=== PATIENT | female | born 1965 | race Caucasian/White ===

== ENCOUNTER → 2020-07-09 09:13 | Outpatient (CLI) | payer OTHER, SELFPAY ==
--- NOTE | ~2020-07-09 | MM_ITS ---
EXAMINATION: MM screening cristy BI w solo HISTORY: Screening TECHNIQUE: Craniocaudal and mediolateral oblique 3-D tomosynthesis images were obtained and synthetic 2-D images were generated. CAD analysis was submitted and interpreted. COMPARISON: Comparison to multiple prior studies sequentially, with oldest reviewed study dated 01/08. BREAST PARENCHYMAL COMPOSITION: There are scattered areas of fibroglandular density. FINDINGS: There is no evidence of suspicious mass, calcification, or architectural distortion to sugg est malignancy in either breast. There has been no suspicious interval change. IMPRESSION: 1. No mammographic evidence of malignancy. 2. Recommend routine screening mammography in one year. BI-RADS Category 1: Negative Reviewed, dictated and finalized at location A.
== END ==
PROVIDERS: Visit Provider Nurse Practitioner
DX: Z12.31 Encounter for screening mammogram for malignant neoplasm of breast (principal)
CPT/HCPCS: 77063; 77067

== ENCOUNTER → 2021-09-19 17:16 | Outpatient (CLI) | payer OTHER, SELFPAY ==
--- NOTE | ~2021-09-19 | DEXA_ITS ---
Bone Density Report Name: Nelli Durbin Age: 55 Sex: Female Ethnicity: White Date of : 1965 Indication: postmenopausal; screening for osteoporosis; height loss; hysterectomy; Referring Provider: KIM, JJ Study: Bone densitometry was performed. Exam Date: September 19, 2021 Accession number: [id number] Bone Density: Region BMD T-score Z-score Classification AP Spine (L1-L4) 0.992 -0.5 0.6 Normal Femoral Neck (Left) 0.790 -0.5 0.6 Normal Total Hip (Left) 0.938 0.0 0.7 Normal Femoral Neck (Right) 0.742 -1.0 0.1 Normal Total Hip (Right) 0.878 -0.5 0.2 Normal Total Hip Mean 0.908 -0.3 0.5 Normal World Health Organization criteria for BMD impression classify patients as: Normal (T-score at or above -1.0), Osteopenia (T-score between -1.0 and -2.5), or Osteoporosis (T-score at or below -2.5). 10-year Fracture Risk: FRAX not reported because: All T-scores for Spine Total, Hip Total, Femoral Neck at or above -1.0 Previous Exams: Region Exam Age BMD T-score BMD Change BMD Change Date g/cm2 vs Baseline vs Previous AP Spine(L1-L4) 09/19/2021 55 0.992 -0.5 -0.067 0.028 09/08/2017 51 0.964 -0.8 -0.095* -0.049* 06/30/2013 47 1.013 -0.3 -0.046* -0.003 07/12/2009 43 1.016 -0.3 -0.043* -0.043* 07/08/2008 42 1.059 0.1 Total Hip(Left) 09/19/2021 55 0.938 0.0 -0.083 0.018 09/08/2017 51 0.920 -0.2 -0.101* -0.054* 06/30/2013 47 0.973 0.3 -0.047* -0.007 07/12/2009 43 0.980 0.3 -0.040* -0.040* 07/08/2008 42 1.021 0.6 Total Hip(Right) 09/19/2021 55 0.878 -0.5 -0.089 0.003 09/08/2017 51 0.875 -0.6 -0.092* -0.072* 06/30/2013 47 0.947 0.0 -0.020 0.001 07/12/2009 43 0.946 0.0 -0.021 -0.021 07/08/2008 42 0.967 0.2 *Denotes significance at 95% confidence level, LSC for AP Spine = 0.022 g/cm2, LSC for Total Hip = 0.027 g/cm2 Clinical Information Provided by Patient: Has used the following medications: Vitamin D Has the following medical conditions: Hysterectomy Patient maximum height was 69.0 Menopause Age: 38 No regular weight bearing exercise Drinks caffeinated beverages Onset of menses at age 14 Number of children 0 Impression: The patient has normal bone ma
--- NOTE | ~2021-09-19 | MM_ITS ---
EXAMINATION: MM screening cristy BI w solo HISTORY: Screening mammogram TECHNIQUE: Craniocaudal and mediolateral oblique 3-D tomosynthesis images were obtained and synthetic 2-D images were generated. CAD analysis was submitted and interpreted. COMPARISON: 07/09/2020, 02/13/2019, 09/08/2017 bilateral digital screening mammogram examinations BREAST PARENCHYMAL COMPOSITION: There are scattered areas of fibroglandular density. FINDINGS: There is no evidence of suspicious mass, calcification, or architectural distortion to sugg est malignancy in either breast. There has been no suspicious interval change. IMPRESSION: 1. No mammographic evidence of malignancy. 2. Recommend routine screening mammography in one year. BI-RADS Category 1: Negative Reviewed, dictated and finalized at location A.
== END ==
PROVIDERS: Visit Provider Nurse Practitioner
DX: Z12.31 Encounter for screening mammogram for malignant neoplasm of breast (principal); Z78.0 Asymptomatic menopausal state
CPT/HCPCS: 77063; 77067; 77080

== ENCOUNTER 2022-12-15 09:24 | Emergency (ER) | payer OTHER, SELFPAY ==
[2022-12-15 09:43] VITALS: BP 109/77; PULSE 77; RESP 16; TEMP 36.9; O2SAT 99
--- NOTE | 2022-12-15 09:43 | ECG_ITS ---
Measurements Intervals [place] Rate: 77 P: 74 IA: 181 QRS: 35 QRSD: 77 T: 53 QT: 372 QTc: 422 Interpretive Statements SINUS RHYTHM VENTRICULAR TRIGEMINY POSSIBLE LEFT ATRIAL ENLARGEMENT RSR' IN V1 OR V2, PROBABLY NORMAL VARIANT BASELINE ARTIFACT- I, III ABNORMAL ECG NO PREVIOUS ECG AVAILABLE FOR COMPARISON Electronically Signed On 12-15-2022 10:10:57 MACHINE LEAD BURNER by Conor Naylor D.O.
--- NOTE | 2022-12-15 10:06 | ED.CHESTPAIN ---
HPI - Chest Pain General Chief Complaint: Chest Pain Stated Complaint: PALPITATIONS/CHEST HEAVINESS Time Seen by Provider: 12/15/22 09:56 Source: patient Mode of arrival: ambulatory Limitations: no limitations History of Present Illness HPI narrative: Patient presents today complaining of heart palpitations and chest tightness x5 days. Symptoms have been progressively getting worse since onset and are now constant. Denies shortness of breath, nausea vomiting, dizziness or lightheadedness. Denies any cardiac history. Related Data Home Medications Medication Instructions Recorded Confirmed venlafaxine 37.5 mg 37.5 mg PO DAILY 12/15/22 12/15/22 capsule,extended release 24 hr Allergies Allergy/AdvReac Type Severity Reaction Status Date / Time aspirin Allergy Unknown Unknown Unverified 12/15/22 09:41 codeine Allergy Unknown NAUSEA AND Unverified 12/15/22 09:41 VOMITING erythromycin base Allergy Unknown RESPIRATORY Unverified 12/15/22 09:41 DISTRESS Penicillins Allergy Unknown RESPIRATORY Unverified 12/15/22 09:41 DISTRESS ALL PENCILLINS Allergy Mild RESPIRATORY Uncoded 12/15/22 09:41 DISTRESS Review of Systems Review of Systems: CONSTITUTIONAL: Denies body aches, fever, chills, or sweats. EYES: Denies visual changes, redness, or discharge. ENT: Denies rhinorrhea, congestion, sore throat, or otalgia. CARDIOVASCULAR: Denies edema.+ palpitations, chest tightness RESPIRATORY: Denies cough or dyspnea. GASTROINTESTINAL: Denies abdominal pain, nausea, vomiting, or diarrhea. GENITOURINARY: Denies dysuria or hematuria. SKIN: Denies rash, itching, or wounds. MUSCULOSKELETAL: Denies back pain, joint pain, or myalgia. NEUROLOGIC: Denies headache, numbness, tingling, or weakness. PSYCH: Denies depression or anxiety. PMFSH Comments At time of signature, I have reviewed and agree with nursing past medical, surgical, social and family history unless otherwise noted. Please see nursing chart for further information. There is no relevant family history pertinent to the presenting complaint Exam Narrative: GENERAL: Well-appearing, well-nourished, and in no acute distress. HEAD: Normocephalic, atraumatic. EYES: EOMI. No redness or drainage. Conjunctivae normal. ENT: Mucous membranes pink and moist. NECK: Normal AROM. CHEST: No respiratory distress. Clear to auscultation. Chest is nontender HEART: Regular rate. Abnormal rhythm. No murmur appreciated. Normal peripheral pulses. ABDOMEN: Soft, nontender, nondistended, normal active bowel sounds. MUSCULOSKELETAL: No bony tenderness. EXTREMITIES: Normal range of motion. No edema. SKIN: Warm, dry, no rash. Capillary refill normal. Normal skin turgor. NEURO: No focal deficits. Alert and oriented x3. Gait steady. PSYCH: Normal affect. No signs of depression or anxiety. Course Course Level of Care: Express Care Visit Vital Signs Vital signs: Vital Signs Temperature 98.4 F 12/15/22 09:43 Pulse Rate 77 12/15/22 09:43 Respiratory Rate 16 12/15/22 09:43 Blood Pressure 109/77 12/15/22 09:43 Pulse Oximetry 99 12/15/22 09:43 Temperature 98.4 F 12/15/22 09:43 Pulse Rate 77 12/15/22 09:43 Respiratory Rate 16 12/15/22 09:43 Blood Pressure 109/77 12/15/22 09:43 Pulse Oximetry 99 12/15/22 09:43 Reviewed Transfer Transfered to: [facility] Transportation: Other (Private vehicle) Transfer rationale: Chest tightness, palpitations Accepting physician: Logan MDM - Chest Pain MDM Narrative Medical decision making narrative: EKG shows sinus rhythm with PVCs. Since patient is having chest tightness as well, I feel it indicated to transfer her to the ER for cardiac workup. ECG Data EKG #1: Attestation: I personally reviewed and interpreted this ECG as follows: ECG completion date: 12/15/22 ECG completion time: 09:40 Interpretation: Sinus rhythm with frequent PVCs. Heart rate 77. Peer inter
== END 2022-12-15 10:14 | disposition short-term general hospital (02) ==
PROVIDERS: Emergency Provider Nurse Practitioner
DX: R07.9 Chest pain, unspecified (principal); I49.3 Ventricular premature depolarization
CPT/HCPCS: 93005; 99203; G0463

== ENCOUNTER 2022-12-15 10:38 | Emergency (ER) | payer OTHER, SELFPAY ==
[2022-12-15] VITALS (8 sets, daily range): BP systolic 102–130; BP diastolic 63–82; PULSE 72–82; RESP 12–16; TEMP 36.6–37.1; O2SAT 97–100
--- NOTE | ~2022-12-15 | XR_ITS ---
EXAMINATION: XR chest 2V DATE: 12/15/2022 11:56 INDICATION: Heart palpitations TECHNIQUE: PA and lateral views of the chest were obtained. COMPARISON: Chest radiograph dated 03/19/2004 FINDINGS: Mild streaky opacities at the anterior lung bases most likely representing atelectasis along side a s mall bilateral paracardial fat pads. No other airspace opacities, pulmonary edema, pleural effusion o r pneumothorax. The cardiomediastinal silhouette is normal. Thoracic spondylosis. IMPRESSION: 1. Mild streaky anterior bibasilar opacities and favor atelectasis over pneumonia. Reviewed, dictated and finalized at location A. [facility] IMPRESSION: 1. Mild streaky anterior bibasilar opacities and favor atelectasis over pneumon ia.
--- NOTE | 2022-12-15 10:41 | ECG_ITS ---
Measurements Intervals [place] Rate: 75 P: 66 [place]: 169 QRS: 26 QRSD: 87 T: 48 QT: 370 QTc: 415 Interpretive Statements SINUS RHYTHM POSSIBLE LEFT ATRIAL ENLARGEMENT LOW QRS VOLTAGE IN PRECORDIAL LEADS DELAYED PRECORDIAL R/S TRANSITION BORDERLINE T WAVE ABNORMALITY- ANTERIOR LEADS BORDERLINE ECG COMPARED TO ECG 12/15/2022 09:40:53 NO SIGNIFICANT CHANGES Electronically Signed On 12-15-2022 12:04:10 TERMITE EXTERMINATOR by Conor Naylor D.O.
--- NOTE | 2022-12-15 11:26 | ED.ARRPALP ---
HPI - Arrhythmia/Palpitations General Chief Complaint: Arrhythmia/Palpitations Stated Complaint: HEART PALPATATIONS Time Seen by Provider: 12/15/22 11:10 History of Present Illness HPI narrative: 57-year-old female here for evaluation of palpitations over the past 4 days. Patient states that the palpitations have becoming more frequent in nature and are now associated with a band of tightness under her stomach. She presented to an urgent care facility today for her symptoms, had an EKG that showed frequent PVCs so she was referred to the ED. Patient denies any syncope, shortness of breath, fevers or chills. Does endorse caffeine use. No cardiac history. Related Data Home Medications Medication Instructions Recorded Confirmed venlafaxine 37.5 mg 37.5 mg PO DAILY 12/15/22 12/15/22 capsule,extended release 24 hr Allergies Allergy/AdvReac Type Severity Reaction Status Date / Time aspirin Allergy Unknown Unknown Verified 12/15/22 11:19 erythromycin base Allergy Unknown RESPIRATORY Verified 12/15/22 11:19 DISTRESS Penicillins Allergy Unknown RESPIRATORY Verified 12/15/22 11:19 DISTRESS codeine AdvReac Unknown NAUSEA AND Verified 12/15/22 11:19 VOMITING ALL PENCILLINS Allergy Mild RESPIRATORY Uncoded 12/15/22 11:19 DISTRESS Review of Systems Review of Systems: Gen.: Denies fevers or chills Eyes: Denies eye pain or visual change ENT: Denies congestion Respiratory: Denies shortness of breath or cough CV: Reports palpitations GI: Denies abdominal pain nausea, emesis or diarrhea denies burning, urgency, frequency or hematuria Musculoskeletal: Denies back pain or muscle pain Neuro: Denies numbness, tingling, weakness or focal weakness Skin: Denies rash Except as documented, all other systems reviewed and negative Exam Narrative: APPEARANCE: Well appearing, no pain in distress, well-nourished. Head: Normocephalic and atraumatic. EYES: PERRLA/EOMI, conjunctivae clear NOSE: No nasal drainage EARS: External ear normal in appearance THROAT: Oropharynx is clear. Mucous membranes are moist. NECK: Supple. No adenopathy, no masses. RESPIRATORY: Airway patent, respirations nonlabored. Clear to auscultation bilaterally, no rales, rhonchi, wheezing. CARDIOVASCULAR: Regular rate and rhythm without murmurs, rubs, or gallops. ABDOMINAL: Normoactive bowel sounds. Soft, nontender, nondistended. No rebound tenderness or guarding. MUSCULOSKELETAL: Extremities are warm and well-perfused. Moves all extremities well. No edema. NEURO: Normal speech. No focal neurologic deficits. SKIN: Skin is warm and dry. No rashes. PSYCHIATRIC: Normal affect/mood.. Course Vital Signs Vital signs: Vital Signs Temperature 97.8 F 12/15/22 11:03 Pulse Rate 75 12/15/22 11:03 Respiratory Rate 16 12/15/22 11:03 Blood Pressure 105/70 12/15/22 11:03 Pulse Oximetry 98 12/15/22 11:03 Oxygen Delivery Room Air 12/15/22 11:03 Temperature 98.8 F 12/15/22 12:10 Pulse Rate 82 12/15/22 15:34 Respiratory Rate 12 12/15/22 15:34 Blood Pressure 121/68 12/15/22 15:34 Pulse Oximetry 98 12/15/22 15:34 Oxygen Delivery Room Air 12/15/22 11:03 MDM - Arrhythmia/Palpitations MDM Narrative Medical decision making narrative: 57-year-old female here for evaluation of palpitations over the past several days associated with chest tightness sensation. She has had no syncope or other concerning history components associated with the palpitations. She is nontoxic-appearing and has normal vital signs. Her heart and lungs are clear to auscultation. Her EKG is in sinus rhythm; reviewed EKG from urgent care that shows frequent PVCs. Patient was maintained on telemetry throughout her ED stay and did not have any concerning events, she does appear to have PVCs with her sensation of palpitations. Trope is negative. D-dimer is negative. TSH is normal. Other labs are unremarkable, chest x-ray shows atelectasis but no a
[2022-12-15 11:51] LABS: Basophils Percent Auto 0.8 % (0.2-1.2); Eosinophils Absolute Auto 0.2 K/mm3 (0-0.3); Eosinophils Percent Auto 4.1 % (0-4.4); Hematocrit 37.4 % (37.0-47.0); Hemoglobin 12.1 g/dL (12.0-15.0); Immature Granulocyte Absolute 0.01 K/mm3 (0.00-0.031); Immature Granulocyte Percent A 0.2 % (0-0.5); Lymphocytes Absolute Auto 1.88 K/mm3 (0.9-3.2); Lymphocytes Percent Auto 36.6 % (18.3-44.2); Mean Corpuscular HGB Conc 32.4 g/dl (32-36); Mean Corpuscular Hemoglobin 30.8 pg (26-34); Mean Corpuscular Volume 95.2 fl (80-100); Mean Platelet Volume 9.5 fl (7.4-10.4); Monocytes Absolute Auto 0.4 K/mm3 (0.1-0.6); Monocytes Percent Auto 7.8 % (2.6-8.5); Neutrophils Absolute Auto 2.6 K/mm3 (1.3-6.7); Neutrophils Percent Auto 50.5 % (45.5-73.1); Platelet Count Result 199 k/mm3 (150-375); Red Blood Count 3.93 M/mm3 (4.2-5.4); Red Cell Distribution Width 12.8 % (11.5-14.5); White Blood Count 5.1 K/mm3 (4.5-10.0)
[2022-12-15 13:31] LABS: Alanine Aminotransferase 20 U/L (6-35); Albumin Level 3.9 g/dL (3.5-5.1); Alkaline Phosphatase 100 U/L (38-126); Anion Gap 8 mmol/L (8-16); Aspartate Amino Transferase 19 U/L (14-36); Bilirubin,Total 0.5 mg/dL (0.2-1.3); Blood Urea Nitrogen 16 mg/dL (7-17); Calcium 8.9 mg/dL (8.4-10.2); Carbon Dioxide 23 mmol/L (22-30); Chloride 108 mmol/L (98-107); Estimated CRCL calculation 80 ml/min; Estimated Glomerular Filt Rate > 60; Glucose 96 mg/dL (65-110); Lipase 66 U/L (23-300); Magnesium 1.9 mg/dL (1.6-2.3); Potassium 4.1 mmol/L (3.4-5.0); Sodium 139 mmol/L (137-145)
[2022-12-15 13:43] LABS: Troponin I < 0.012 ng/mL (0.000-0.034)
[2022-12-15 14:34] LABS: D Dimer 0.31 ug/mL (<0.48)
--- NOTE | 2022-12-25 08:30 | PC.NURSE ---
pt. called unable to schedule holter monitor and told no order for her. Order hx shows Rae Aranda entered order than Charlene Tee cancelled it. I called cardioCharlene answered. States she canceled the order because the pt. was going to [place] ; I explained the pt. was moving to [place] and still needed the order. I was directed to put in a new order. Placed same order as entered by Rae Aranda on 12.15.22 except made order routine vs. stat . Called cardio to confirm, no answer, left message and requested return call to confirm everything was in order for this pt.
== END 2022-12-15 15:36 | disposition home or self-care (01) ==
PROVIDERS: Emergency Provider Physician Assistant
DX: I49.3 Ventricular premature depolarization (principal)
CPT/HCPCS: 36415; 71046; 80053; 83690; 83735; 84443; 84484; 85025; 85380; 93005; 99284

== ENCOUNTER → 2023-02-20 07:26 | Outpatient (CLI) | payer OTHER, SELFPAY ==
--- NOTE | ~2023-02-20 | MM_ITS ---
EXAMINATION: MM screening cristy BI w solo HISTORY: Screening TECHNIQUE: Craniocaudal and mediolateral oblique 3-D tomosynthesis images were obtained and synthetic 2-D images were generated. CAD analysis was submitted and interpreted. COMPARISON: Comparison to multiple prior studies sequentially, with oldest reviewed study dated 02/2014. BREAST PARENCHYMAL COMPOSITION: There are scattered areas of fibroglandular density. FINDINGS: There is possible architectural distortion laterally in the right breast on CC view. The le ft breast is stable without evidence for malignancy. IMPRESSION: 1. Possible architectural distortion of the right breast laterally on CC view. 2. Additional mammographic views and possible breast ultrasound are recommended. BI-RADS Category 0: Incomplete: Needs additional imaging evaluation. Reviewed, dictated and finalized at location A. IMPRESSION: 1. Possible architectural distortion of the right breast laterally on CC view. 2. Additional mammographic views and possible breast ultrasound are recommended . BI-RADS Category 0: Incomplete: Needs additional imaging evaluation.
== END ==
PROVIDERS: PCP Nurse Practitioner; Visit Provider Nurse Practitioner
DX: Z12.31 Encounter for screening mammogram for malignant neoplasm of breast (principal); R92.8 Other abnormal and inconclusive findings on diagnostic imaging of breast
CPT/HCPCS: 77063; 77067

== ENCOUNTER → 2023-03-20 07:25 | Outpatient (CLI) | payer OTHER, SELFPAY ==
--- NOTE | ~2023-03-20 | MMUS_ITS ---
EXAMINATION: MM diagnostic cristy RT w solo, US breast RT limited HISTORY: Possible architectural distortion reported in outer right breast on screening CC view of 01/25 TECHNIQUE: Additional 3-D tomosynthesis images of the right breast were performed and synthetic 2-D i mages were generated. CAD analysis was submitted and interpreted. High resolution upper outer quadran t right breast ultrasound was performed. COMPARISON: 02/20/2023 bilateral screening mammogram FINDINGS: MAMMOGRAPHIC FINDINGS: No suspicious mass or architectural distortion, skin thickening or retraction is evident. ULTRASOUND: No suspicious mass or shadowing, cyst or other sylvian sonographic abnormality is noted in the upper outer quadrant of the right breast. IMPRESSION: 1. No mammographic evidence of malignancy 2. Routine annual mammographic screening is recommended BI-RADS Category 1: Negative Reviewed, dictated and finalized at location A. IMPRESSION: 1. No mammographic evidence of malignancy 2. Routine annual mammographic screening is recommended BI-RADS Category 1: Negative
== END ==
PROVIDERS: PCP Nurse Practitioner; Visit Provider Obstetrics & Gynecology Gynecology
DX: R92.8 Other abnormal and inconclusive findings on diagnostic imaging of breast (principal)
CPT/HCPCS: 76642; 77061; 77065; G0279

== ENCOUNTER → 2023-03-20 07:28 | Outpatient (CLI) | payer OTHER, SELFPAY ==
--- NOTE | ~2023-03-20 | XR_ITS ---
EXAMINATION: XR shoulder LT min 2V DATE: 03/20/2023 08:22 INDICATION: Left shoulder pain. TECHNIQUE: 4 views of left shoulder were obtained. COMPARISON: None. FINDINGS: Bone alignment is normal. No fracture. Glenohumeral joint is normal. There is severe acromi oclavicular joint osteoarthritis. IMPRESSION: 1. Severe acromioclavicular joint osteoarthritis. Reviewed, dictated and finalized at location A.
--- NOTE | ~2023-03-20 | XR_ITS ---
EXAMINATION: XR knee LT 3V DATE: 03/20/2023 08:22 INDICATION: Left knee pain. TECHNIQUE: 3 views of left knee including standing views were obtained. COMPARISON: None. FINDINGS: Bone alignment is normal. No fracture. There is moderate osteoarthritis of medial compartme nt and mild osteoarthritis of lateral and patellofemoral compartments. No knee joint effusion. IMPRESSION: 1. Moderate left knee osteoarthritis. Reviewed, dictated and finalized at location A.
== END ==
PROVIDERS: PCP Nurse Practitioner; Visit Provider Nurse Practitioner
DX: M25.512 Pain in left shoulder (principal); M25.562 Pain in left knee; M19.012 Primary osteoarthritis, left shoulder; M17.12 Unilateral primary osteoarthritis, left knee
CPT/HCPCS: 73030; 73562

== ENCOUNTER 2023-06-06 00:25 | Day surgery (SDC) | payer OTHER, SELFPAY ==
[2023-05-24 13:51] VITALS: BMI 27.0
[2023-06-06] MEDS: LACTATED RINGERS 1,000 ML 150 ML IV CONT (07:02)
--- NOTE | 2023-06-06 07:47 | WPDANESEPPF ---
Anes - Initial Pre Proc Eval Procedure: Operation Date: 06/06/23 08:00 Proposed Procedures p Screening Colonoscopy - J Luis Goldberg MD Date/Time: 06/06/23 07:47 Surgeon: J Luis Goldberg MD Pre Op Diagnosis: neoplasm screening Patient Data Age: 57 Gender: F Height: 1.75 m Weight: 82 kg Allergies Allergy/AdvReac Type Severity Reaction Status Date / Time aspirin Allergy Unknown Unknown Verified 06/06/23 06:47 crab Allergy Unknown unknown Verified 06/06/23 06:47 erythromycin base Allergy Unknown RESPIRATORY Verified 06/06/23 06:47 DISTRESS Penicillins Allergy Unknown RESPIRATORY Verified 06/06/23 06:47 DISTRESS shrimp Allergy Unknown Unknown Verified 06/06/23 06:47 codeine AdvReac Unknown NAUSEA AND Verified 06/06/23 06:47 VOMITING ALL PENCILLINS Allergy Mild RESPIRATORY Uncoded 06/06/23 06:47 DISTRESS Home Medications Medication Instructions Recorded Confirmed Type acetaminophen 650 mg 1,300 mg PO Q8H 05/03/23 05/30/23 History tablet,extended release (Arthritis Pain Relief (acetaminophen) ER) flecainide 50 mg tablet 50 mg PO BID 05/24/23 05/30/23 History Patient hx anesthesia problems: none Family hx anesthesia problems: none Results Review: All pre-operative results and documents have been reviewed as part of the pre-operative evaluation. [facility] Past Medical History Medical History History of bruising easily History of postoperative nausea and vomiting Premature ventricular contractions (PVCs) (VPCs) (~12/19/22) Sensitivity to medication Narcotics Surgical History Surgical History History of abdominal hysterectomy (~1997) History of dental surgery History of laparoscopy (~1989) Endometriosis History of right knee surgery (~2004) Family History Family History Mother Hypertension Arthritis Father Arthritis Sibling Arthritis Grandparent Arthritis Social History Social History Smoking status: Never smoker Alcohol intake: never Substance use: current Substance use type: other Other substance usage details: CBD OIL AND GUMMIES Lack of Transportation: No Lack of Food: Never True Current Housing: I Have Housing Concerned About Future Housing: No Difficulty Paying Gas/Electric Bills: No Difficulty Paying for Meds: No Currently Unemployed: No Education: Bachelor's Degree Difficulty w/ Childcare or Family Care: No Living arrangements: with family Spiritual care concerns: No Anes - Eval Final PreProcedure Day of Procedure 06/06/23 07:47 Patient weight: normal Heart: regular rate and rhythm Lungs: clear to auscultation Airway: Mallampati scale class II Neurological: alert and oriented Last oral intake: >/= 8 hours ASA classification: II Emergent: no Anesthetic plan: proceed Anesthesia type and monitoring: general GIVS and standard monitoring Results Review: All pre-operative results and documents have been reviewed as part of the pre-operative evaluation. Informed Consent: The patient's anesthetic plan and its attendant risks and benefits were discussed with the patient/family/POA. Questions were solicited and answers provided to the satisfaction of the patient/family/POA.
--- NOTE | 2023-06-06 07:54 | PM.HPGS ---
History of Present Illness History of Present Illness Consent: Risks, benefits, and alternatives have been discussed and questions answered. Patient agrees to proceed with procedure. Chief complaint: neoplasm screening Narrative: Nelli Durbin is a 57 year old female here for first screening colonoscopy Review of Systems Constitutional: Constitutional: Denies headache(s) and Denies weakness Eyes: Eyes: Denies blurry vision ENT: Reports Normal hearing present, Denies headache(s) and Denies neck pain Cardiovascular: Cardiovascular: Denies chest pain and Denies dyspnea Respiratory: Respiratory: Denies dyspnea Gastrointestinal: Gastrointestinal: Reports no additional gastrointestinal complaints Genitourinary: Genitourinary: Denies dysuria Musculoskeletal: Musculoskeletal: Denies neck pain Integumentary/Breasts: Skin/Breast: Denies dry skin Neurologic: Reports Normal hearing present, Denies headache(s) and Denies weakness Psychiatric: Psychiatric: Denies anxiety Endocrine: Endocrine: Denies change in body appearance Hematologic/Lymphatic: Hematologic/Lymphatic: Denies easy bleeding Allergic/Immunologic: Allergic/Immunologic: Denies urticaria PMF Past Medical History Medical History (Updated 06/06/23 @ 07:55 by J Luis Goldberg MD) Colon cancer screening History of bruising easily History of postoperative nausea and vomiting Premature ventricular contractions (PVCs) (VPCs) (~12/19/22) Sensitivity to medication Narcotics Surgical History Surgical History History of abdominal hysterectomy (~1997) History of dental surgery History of laparoscopy (~1989) Endometriosis History of right knee surgery (~2004) Family History Family History Mother Hypertension Arthritis Father Arthritis Sibling Arthritis Grandparent Arthritis Social History Social History Smoking status: Never smoker Alcohol intake: never Substance use: current Substance use type: other Other substance usage details: CBD OIL AND GUMMIES Lack of Transportation: No Lack of Food: Never True Current Housing: I Have Housing Concerned About Future Housing: No Difficulty Paying Gas/Electric Bills: No Difficulty Paying for Meds: No Currently Unemployed: No Education: Bachelor's Degree Difficulty w/ Childcare or Family Care: No Living arrangements: with family Spiritual care concerns: No Meds Home Medications and Allergies Home Medications Medication Instructions Recorded Confirmed Type acetaminophen 650 mg 1,300 mg PO Q8H 05/03/23 05/30/23 History tablet,extended release (Arthritis Pain Relief (acetaminophen) ER) flecainide 50 mg tablet 50 mg PO BID 05/24/23 05/30/23 History Allergies Allergy/AdvReac Type Severity Reaction Status Date / Time aspirin Allergy Unknown Unknown Verified 06/06/23 06:47 crab Allergy Unknown unknown Verified 06/06/23 06:47 erythromycin base Allergy Unknown RESPIRATORY Verified 06/06/23 06:47 DISTRESS Penicillins Allergy Unknown RESPIRATORY Verified 06/06/23 06:47 DISTRESS shrimp Allergy Unknown Unknown Verified 06/06/23 06:47 codeine AdvReac Unknown NAUSEA AND Verified 06/06/23 06:47 VOMITING ALL PENCILLINS Allergy Mild RESPIRATORY Uncoded 06/06/23 06:47 DISTRESS Exam Const: General: comfortable and no acute distress HENMT: Face/Nose/Sinus: Normal nares present Eyes: General: appearance normal, both eyes and all related structures Neck: Neck: no JVD Resp: Auscultation: clear to auscultation bilaterally Cardio: Rate: regular rate Rhythm: regular rhythm GI: Inspection: non-distended GI Palp: Yes Soft to palpation Skin: General skin exam: normal color Neuro: General: gait normal Speech: normal speech Extrem: General: normal to i
[2023-06-06 08:14] VITALS: BP 101/59; PULSE 81; RESP 21; O2SAT 96
[2023-06-06 08:24] VITALS: BP 104/64; PULSE 64; RESP 13; O2SAT 99
[2023-06-06 08:34] VITALS: BP 126/65; PULSE 74; RESP 24; O2SAT 99
== END 2023-06-06 08:47 | disposition home or self-care (01) ==
PROVIDERS: PCP Nurse Practitioner; Visit Provider Internal Medicine Gastroenterology
PROC: 0DJD8ZZ Inspection of Lower Intestinal Tract, Via Natural or Artificial Opening Endoscopic (ICD-10-PCS; CPT 45378; principal; 2023-06-06 08:00)
DX: Z12.11 Encounter for screening for malignant neoplasm of colon (principal); K64.8 Other hemorrhoids; I49.3 Ventricular premature depolarization
CPT/HCPCS: 45378; J2704; J7120

== ENCOUNTER → 2023-07-04 09:46 | Outpatient (CLI) | payer OTHER, SELFPAY ==
--- NOTE | ~2023-07-04 | MMUS_ITS ---
EXAMINATION: MM diagnostic cristy RT w solo, US breast RT limited HISTORY: Palpable lumps in the upper outer quadrant and lower right breast. TECHNIQUE: Craniocaudal, mediolateral, and mediolateral oblique 3-D tomosynthesis images of the right breast were performed and synthetic 2-D images were generated. CAD analysis was submitted and interp reted. High resolution limited right breast ultrasound was performed. COMPARISON: 03/20/2023, 02/12/2023, 09/19/2021, 07/09/2020 BREAST PARENCHYMAL COMPOSITION: There are scattered areas of fibroglandular density. FINDINGS: MAMMOGRAPHIC FINDINGS: No suspicious mass, calcification, or architectural distortion are identified to suggest malignancy. There has been no suspicious interval change. No mammographic correlate is identified for the reporte d palpable abnormalities of the right breast. ULTRASOUND: There is no evidence of focal abnormal solid or cystic mass in the vicinity of the reported palpable abnormalities of the right breast. IMPRESSION: 1. No specific mammographic or sonographic correlate is identified for the reported palpable abnormal ities of concern in the right breast. Further evaluation at this time should be based on clinical ass essment. Continued follow-up physical examination is recommended. 2. Recommend routine screening mammography in one year. BI-RADS Category 1: Negative Reviewed, dictated and finalized at location A. IMPRESSION: 1. No specific mammographic or sonographic correlate is identified for the repo rted palpable abnormalities of concern in the right breast. Further evaluation at this time should be based on clinical assessment. Continued follow-up physic al examination is recommended. 2. Recommend routine screening mammography in one year. BI-RADS Category 1: Negative
== END ==
PROVIDERS: PCP Advanced Practice Midwife; Visit Provider Advanced Practice Midwife
DX: N63.10 Unspecified lump in the right breast, unspecified quadrant (principal); N64.59 Other signs and symptoms in breast
CPT/HCPCS: 76642; 77061; 77065; G0279

== ENCOUNTER 2023-08-21 09:00 | Outpatient (CLI) | payer OTHER, SELFPAY ==
--- NOTE | ~2023-08-21 | US_ITS ---
EXAMINATION: US_VDOPREFBI_US DATE: 08/21/2023 10:11 INDICATION: Chronic venous insufficiency. TECHNIQUE: Grayscale ultrasound images without and with compression and Doppler ultrasound images of the bilateral lower extremity veins were obtained. COMPARISON: None. FINDINGS: The visualized portions of right common femoral vein, profunda (deep) femoral vein, femoral vein, pop liteal vein, peroneal veins, and posterior tibial veins are patent. Saphenous vein measures 9 mm in the upper thigh, 6 mm in the lower thigh, and 7 mm in the calf. There is reflux of right greater saphenous vein measuring 5.0 seconds upper thigh, 1.8 seconds in the lowe r thigh, and 5.0 seconds in the calf. Right small saphenous vein measures 3 mm in the upper calf and 3 mm in the lower calf without reflux. The visualized portions of left common femoral vein, profunda femoral vein, femoral vein, popliteal v ein, peroneal veins, and posterior tibial veins are patent. Left greater saphenous vein measures 7 mm in the upper thigh, 5 mm in the lower thigh, and 4 mm in the calf. There is reflux in left greater s aphenous vein measuring 0.9 seconds in the upper thigh, 2.0 seconds in the lower thigh, and 1.5 secon ds in the calf. Left small saphenous vein measures 3 mm in the upper calf and 4 mm in the lower calf without reflux. IMPRESSION: 1. Reflux in the bilateral greater saphenous veins. Reviewed, dictated and finalized at location E.
== END 2023-08-21 09:01 | disposition home or self-care (01) ==
PROVIDERS: PCP Nurse Practitioner
DX: I87.2 Venous insufficiency (chronic) (peripheral) (principal)
CPT/HCPCS: 93970

== ENCOUNTER 2023-10-22 10:45 | Outpatient (CLI) | payer OTHER, SELFPAY ==
--- NOTE | 2023-10-26 15:46 | WPDHOLTEREM ---
Holter/Event Monitor Holter/Event Monitor Date of procedure: 10/22/23 Holter/Event Procedure: 48 Hr Holter Monitor Indications: PVC's Conclusion: 1. 48 hour holter monitor on 10/22/23. 2. Underlying rhythm is sinus rhythm. HR range 59-132 bpm; average 81 bpm. HR at 132 bpm was at 08:55. 3. There are 4 premature supraventricular complexes and 2 supraventricular couplets. No supraventricular tachycardia. 4. There are 6,827 premature ventricular complexes, 3 ventricular couplets, 53 ventricular bigeminy and 17,961 ventricular trigeminy. No ventricular tachycardia. 5. No sinoatrial or atrioventricular blocks. No significant pauses greater than 2 seconds. 6. Patient reports symptom of fast HR and slight pounding which demonstrate sinus rhythm at 85 bpm.
== END 2023-10-22 10:46 | disposition home or self-care (01) ==
LOC: ANHCARD 10:46
PROVIDERS: PCP Nurse Practitioner; Visit Provider Internal Medicine Cardiovascular Disease
DX: I49.3 Ventricular premature depolarization (principal)
CPT/HCPCS: 93225; 93226

== ENCOUNTER 2024-04-04 07:17 | Outpatient (CLI) | payer OTHER, SELFPAY ==
--- NOTE | ~2024-04-04 | MM_ITS ---
EXAMINATION: MM screening cristy BI w solo HISTORY: Screening mammogram TECHNIQUE: Craniocaudal and mediolateral oblique 3-D tomosynthesis images were obtained and synthetic 2-D images were generated. CAD analysis was submitted and interpreted. COMPARISON: 07/04/2023 right diagnostic mammogram and Limited right breast ultrasound, reported negativ e 03/20/2023 diagnostic right mammogram and Limited right breast ultrasound, reported negative 02/20/2023, 09/19/2021 bilateral screening mammogram examinations BREAST PARENCHYMAL COMPOSITION: There are scattered areas of fibroglandular density. FINDINGS: There is no evidence of suspicious mass, calcification, or architectural distortion to sugg est malignancy in either breast. There has been no suspicious interval change. IMPRESSION: 1. No mammographic evidence of malignancy. 2. Recommend routine screening mammography in one year. BI-RADS Category 1: Negative Reviewed, dictated and finalized at location B.
== END 2024-04-04 07:18 ==
PROVIDERS: PCP Nurse Practitioner; Visit Provider Obstetrics & Gynecology Gynecology
DX: Z12.31 Encounter for screening mammogram for malignant neoplasm of breast (principal)
CPT/HCPCS: 77063; 77067

== ENCOUNTER 2024-09-24 08:38 | Outpatient (CLI) | payer BC, SELFPAY ==
--- NOTE | ~2024-09-24 | XR_ITS ---
XR knee LT min 4V Ordering provider: Abner Hightower MD History: . M23.92 - Unspecified internal derangement of left knee . Comparison: March 20, 2023 FINDINGS: BONES: No acute fracture or dislocation. JOINT SPACES: Narrowing of the medial compartment. Marginal osteophytes in the knee and patella. SOFT TISSUES: Normal. IMPRESSION: No acute osseous abnormality left knee. Reviewed, dictated and finalized at location A.
== END 2024-09-24 08:39 | disposition home or self-care (01) ==
PROVIDERS: PCP Orthopaedic Surgery; Visit Provider Orthopaedic Surgery
DX: M23.92 Unspecified internal derangement of left knee (principal)
CPT/HCPCS: 73564

== ENCOUNTER 2025-04-03 08:49 | Outpatient (CLI) | payer BC, SELFPAY ==
--- OUTSIDE RECORDS SUMMARY | 2025-04-03 08:52 | XMS_ITS | Referral Summary ---
Author Organization [facility] [address] Address [address] [place] [address] Care Team Providers Care Medical Radiation Therapist Name Role Phone Allison Zurita NP Primary Care Provider [phone] Allison Zurita TAKE OUT WAITRESS Unavailable [phone] Allergies Active Allergy Reactions Criticality Noted Date Comments Aspirin Other (See comments) Low 07/17/2019 UNSURE WAS A TODDLER Erythromycin Urticaria Medium 07/17/2019 BREATHING PROBLEMS Penicillins Urticaria Medium 07/17/2019 BREATHING PROBLEMS Medications estradioL (Imvexxy Maintenance Pack) 10 mcg insert vaginal insert Insert 10 mcg into the vagina 2 (two) times a week Active flecainide (TAMBOCOR) 50 mg tablet TAKE 1 TABLET(50 MG) BY MOUTH TWICE DAILY 180 tablet 1 08/07/2023 Active Active Problems Problem Noted Date Diagnosed Date Palpitations 12/29/2022 PVC (premature ventricular contraction) 12/29/19 23 Social History Tobacco Use Types Packs/Day Years Used Date Smoking Tobacco: Never Smokeless Tobacco: Never Tobacco Cessation:Counseling Given: Not Answered Comments Unknown Sex and Gender Information Value Date Recorded Sex Assigned at Not on file Legal Sex Female 7:30 PM THERAPIST RESPIRATORY Gender Identity Not on file Sexual Orientation Not on file Last Filed Vital Signs Vital Sign Reading Time Taken Comments Blood Pressure 100/58 05/09/2023 10:54 AM CDT Pulse 76 05/09/2023 10:54 AM CDT Temperature - - Respiratory Rate 18 04/10/2023 8:27 AM CDT Oxygen Saturation 95% 05/09/2023 10:54 AM CDT Inhaled Oxygen Concentration - - Weight 83.5 kg (184 lb) 04/10/2023 8:27 AM CDT Height 175.3 cm (5' 9 ) 04/10/2023 8:27 AM CDT Body Mass Index 27.17 04/10/2023 8:27 AM CDT Plan of Treatment Not on file Insurance [facility] Address: [address] [address] [facility] Address: [address] [address] [facility] Address: [address] [address] Care Teams Medical Radiation Therapist Relationship Specialty Start Date End Date Allison Zurita NP [address] [place] [id number] PCP - General Nurse Practitioner 12/26/22 Allison Zurita NP [address] [place] [id number] Nurse Practitioner 12/26/22
--- OUTSIDE RECORDS SUMMARY | 2025-04-03 08:52 | XMS_ITS | Clinical Summary ---
Author Organization [facility] [employer] Address [address] [place] [address] Care Team Providers Care Shot Bagger Name Role Phone Unknown, Provider Primary Care Provider Unavaila ble Source Comments [facility],non-owned Affiliates and Associated Physician Practices is amultiple site organization consisting of ambulatory clinics and hospital sitesin [place], [place] and [place]. This disclosure is being madepursuant to the Care Everywhere program and may not contain all information available regarding this patient. Last updated 18.[facility] [employer] Allergies Active Allergy Reactions Criticality Noted Date Comments Aspirin Other 07/17/2019 UNSURE WAS A TODDLER Erythromycin Urticaria,Unknown Medium 07/17/2019 BREATHING PROBLEMS Penicillins Urticaria Medium 07/17/2019 BREATHING PROBLEMS Shellfish Allergy Urticaria,GI Discomfort High 08/01 Shellfish Unknown 12/05/2023 Medications * Be aware that medications may not be up to date on this document. Alwaysverify current medications with the patient. Estradiol (Imvexxy Maintenance Pack) 10 MCG INST Insert 10 mcg into the vagina Two times a week Active Immunizations Immunization Administration Dates Next Due INFLUENZA VACCINE, QUADR. (F LUZONE; FLULAVAL; FLUARIX; AFLURIA QUADRIVALENT; 6MO+), 0.5 ML (IIV4) 09/24/2020 Family History Medical History Relation Name Comments High Cholesterol Father Phlebitis/Blood Clot Father Hypertension Mother Phlebitis/Blood Clot Mother Relation Name Status Comments Father Mother Social History Tobacco Use Types Packs/Day Years Used Date Smoking Tobacco: Never Smokeless Tobacco: Never Tobacco Cessation:Counseling Given: Not Answered Alcohol Use Standard Drinks/Week Comments Yes 0 (1 standard drink = 0.6 oz pur e alcohol) 1-2 monthly AUDIT-C Answer Date Recorded Frequency of Alcohol Consumption Monthly or less 07/17/2019 Average Number of Drinks Not on file 019 Frequency of Binge Drinking Not on file 06/27 Comments No Sex and Gender Information Value Date Recorded Sex Assigned at Not on file Legal Sex Female 1:03 PM HOTEL ASSOCIATE Gender Identity Not on file Sexual Orientation Not on file Last Filed Vital Signs Vital Sign Reading Time Taken Comments Blood Pressure 111/48 03/24/2024 2:26 PM CDT Pulse 78 03/24/2024 2:26 PM CDT Temperature 36.8 C (98.3 F) 03/24/2024 2:26 PM CDT Respiratory Rate 17 03/24/2024 2:26 PM CDT Oxygen Saturation 100% 03/24/2024 2:26 PM CDT Inhaled Oxygen Concentration - - Weight 81 kg (178 lb 9.6 oz) 03/24/2024 2:26 PM CDT Height 175.3 cm (5' 9 ) 03/24/2024 2:26 PM CDT Body Mass Index 26.37 03/24/2024 2:26 PM CDT Plan of Treatment Health Maintenance Due Date Last Done Comments COLON MONITORING 1965 COLONOSCOPY - COLON CA SCREENING 1965 CT COLONOGRAPHY - COLON CA SCREENING 1965 FIT - COLON CA SCREENING 1965 FLEX SIG - COLON CA SCREENING 1965 LIPID TESTING 1965 PAP SMEAR 1965 HIV SCREENING 1980 HEPATITIS C SCREENING 10/19/1983 DTAP/TDAP/TD VACCINES (1 - Tdap) 1984 HEPATITIS B VACCINE (1 of 3 - 19+ 3-dose series) 1984 MAMMOGRAM 12/21/2013 12/21/2011 PNEUMOCOCCAL VACCINE 50+ (1 of 1 - PCV) 2015 ZOSTER VACCINE (1 of 2) 2015 COLOGUARD (AGES 45-75) - COL ON CA SCREENING 05/01/2023 05/01/2020 Colorectal Cancer Screening 05/01/2023 SCREENING FOR DIABETES 08/01/2023 COVID-19 VACCINE (2023-2 5 season) 2024 DEPRESSION SCREENING 11/26/2024 INFLUENZA VACCINE (Season Ended) 2025 09/12/2023, 09/24/2020 HIB VACCINE Aged Out No longer eligi ble based on patient's age to complete this topic HPV VACCINE Aged Out No longer eligi ble based on patient's age to complete this topic MENINGOCOCCAL (Group B) VACCINE SHARED DECISION-MAKING Aged Out No longer eligible based on patient's age to complete this topic MENINGOCOCCAL GROUPS A/C/Y/W VACCINE Aged Out No longer eligible b ased on patient's age to complete this topic Procedures Procedure Name Priority Date/Time Associated Diagnosis Comments MAMMO BILAT SCREENING Routine 12/21/2011 7:38 AM HOTEL ASSOCIATE Other screening mammogram from Last 3 Months or Most Recently Relevant to Health Maintenance Results * MAMMO SCREENING DIGITAL IMAGE BILAT G0202 (12/21/2011 7:38 AM HOTEL ASSOCIATE) Anatomical Region Laterality Modality Breast Bilateral Mammography 12/21/2011 9:27 AM HOTEL ASSOCIATE Addenda This result is currently undergoing an addendum. Addendum by Elizabeth Kim MD on 12/29/2011 2:47 PM HOTEL ASSOCIATE The retroareolar mass is on the right. Addendum by Elizabeth Kim MD on 12/28/2011 3:43 PM HOTEL ASSOCIATE A nodular density in the posterior ducts along the nipple line in the right breast is more prominent than prior studies. Additional evaluation would be warranted with spot compression, straight mediolateral views and possible ultrasound. ASSESSMENT: Incomplete (BI-RADS 0): Need additional imaging evaluation. RECOMMENDATION: Spot compression additional views right breast. The above findings should be correlated with physical examination. A relatively nonspecific study should not preclude additional evaluation if suspicious findings are present clinically. An [employer]. (end of addendum) Narrative 12/21/2011 1:25 PM HOTEL ASSOCIATE DIGITAL BILATERAL SCREENING MAMMOGRAMS WITH CAD CORRELATION DATE: 12/21/2011 PREVIOUS EXAM DATE: None available at time of initial interpretation. Per technologist report, prior imaging is available at [facility] in [place], [place] from 2009. INDICATION: Screening. TECHNIQUE: Bilateral craniocaudad (CC) and mediolateral oblique (MLO) views. The study was interpreted with the aid of CAD. TECHNOLOGIST: RT Derick(Jhon)(M). TISSUE DENSITY: Heterogeneously dense FINDINGS: There is nodular fibroglandular tissue present throughout both breasts. There is a 1 cm mass present within the left breast in the retroareolar location at middle depth. No worrisome clusters of microcalcifications are identified in either breast. No worrisome mass lesions are visualized in the right breast. ASSESSMENT: BI-RADS Category 0: Incomplete - Needs additional imaging. RECOMMENDATIONS: First, obtain prior films for comparison. If this mass has not been previously evaluated completely by diagnostic study, and if there is not two years of stability demonstrated, spot compression views of the left breast in the MLO and CC projection, as well as a rolled CC view of the breast would be recommended with ultrasound as determined at time of diagnostic mammogram. The above findings should be correlated with physical examination. A relatively nonspecific study should not preclude additional evaluation if suspicious findings are present clinically. An [employer] [facility] Procedure Note Aramis Irizarry MD / Elizabeth Kim MD - 12/21/2011 DIGITAL BILATERAL SCREENING MAMMOGRAMS WITH CAD CORRELATION DATE: 12/21/2011 PREVIOUS EXAM DATE: None available at time of initial interpretation. Per technologist report, prior imaging is available at [facility] in [place], [place] from 2009. INDICATION: Screening. TECHNIQUE: Bilateral craniocaudad (CC) and mediolateral oblique (MLO) views. The study was interpreted with the aid of CAD. TECHNOLOGIST: RT Derick(R)(M). TISSUE DENSITY: Heterogeneously dense FINDINGS: There is nodular fibroglandular tissue present throughout both breasts. There is a 1 cm mass present within the left breast in the retroareolar location at middle depth. No worrisome clusters of microcalcifications are identified in either breast. No worrisome mass lesions are visualized in the right breast. ASSESSMENT: BI-RADS Category 0: Incomplete - Needs additional imaging. RECOMMENDATIONS: First, obtain prior films for comparison. If this mass has not been previously evaluated completely by diagnostic study, and if there is not two years of stability demonstrated, spot compression views of the left breast in the MLO and CC projection, as well as a rolled CC view of the breast would be recommended with ultrasound as determined at time of diagnostic mammogram. The above findings should be correlated with physical examination. A relatively nonspecific study should not preclude additional evaluation if suspicious findings are present clinically. An [employer] Akiko Hall MD MAMMO ORDERABLES Edited from Last 3 Months or Most Recently Relevant to Health Maintenance Insurance [facility] Address: [address] [address] Care Teams Shot Bagger Relationship Specialty Start Date End Date Unknown, Provider PCP - General 11/23/23
--- OUTSIDE RECORDS SUMMARY | 2025-04-03 08:52 | XMS_ITS | Clinical Summary ---
Author Organization [facility] [address] Address [address] [place] [address] Care Team Providers Care Multiple Sclerosis Nurse Name Role Phone Allison Zurita NP Primary Care Provider [phone] Allison Zurita CHIEF KNOWLEDGE OFFICER Unavailable [phone] Allergies Active Allergy Reactions Criticality Noted Date [...] 12/29/2022 PVC (premature ventricular contraction) 12/29/19 23 Surgical History Surgery Date Site/Laterality Comments HYSTERECTOMY KNEE SURGERY Right BIOPSY Medical History Medical History Date Comments Palpitations PVC's (premature ventricular contractions) Family History Medical History Relation Name Comments Hyperlipidemia Father Skin cancer Father Heart disease Mother Hypertension Mother back surgery Mother Relation Name Status Comments Father Alive Mother Alive Social History Tobacco Use Types Packs/Day Years Used Date Smoking Tobacco: Never Smokeless Tobacco: Never Tobacco Cessation:Counseling Given: Not Answered Comments Unknown Sex and Gender Information Value Date Recorded Sex Assigned at Not on file Legal Sex Female 7:30 PM AWS DEVELOPER Gender Identity Not on file Sexual Orientation Not on file Obstetrics History Last Filed Vital Signs Vital Sign Reading [...] 04/10/2023 8:27 AM CDT Plan of Treatment Health Maintenance Due Date Last Done Comments Breast Cancer Screening-Mammogram 1965 Colon Cancer Screening-Colonoscopy 1965 Depression Screening 1965 Hepatitis C Screening 1965 DTaP/Tdap/Td Vaccine (1 - Tdap) 1976 Hepatitis B Screening 1983 Regular Well Visit/Exam 18-64 1983 Zoster Vaccine (1 of 2) 2015 Covid-19 Vaccine (4 - 2023-2 5 season) 2024 09/19/2022, 03/06/2021, 02/08/2021 Influenza Vaccine (#1) 2024 , 09/24/2020 Pneumococcal vaccine <65 Aged Out No longer eligible based on patient's age to complete this topic Insurance [facility] Member Subscriber Plan / Payer (Ef fective 2022-Present) Name:Nelli Ahuja Relation to Subscriber:Spouse Name:SESAR AHUJA Date of :1962 (Home) Address: [address] [place] [address] Payer ID:[id number] (NAIC) Type:[facility] H[facility]/PP[facility] Address: [place] [id number] Member Subscriber Plan / Payer (Ef fective 2013-Present) Name:Nelli Ahuja Relation to Subscriber:Spouse Name:SESAR AHUJA Date of :1965 (Home) Address: [address] [place] [address] Payer ID:[id number] (NAIC) Type:[facility] H[facility]/PPO Address: [address] Care Teams Multiple Sclerosis Nurse Relationship Specialty Start Date End Date Allison Zurita NP [address] [address] PCP - General Nurse Practitioner 12/26/22 Allison Zurita NP [address] [address] Nurse Practitioner 12/26/22
--- OUTSIDE RECORDS SUMMARY | 2025-04-03 08:52 | XMS_ITS | Data Portability ---
Author Organization [place] - [facility], Cecily Dow Address [address] [place] [address] Care Team Providers Care Branch Associate Teller Name Role Phone ROCAEL MURRAY Primary Care Provider BRI Mcneil OTHER Assessment No assessment recorded. Plan of Treatment Reminders Order Date Submit Date Provider Last Modified By Organization Details Last Modified Time Details Appointments None recorded. Lab HbA1c (hemoglobin A1c), blood 2023 024 [facility] [address], [address], 4 10:10:27 lipid panel, blood [address], [address], 4 10:10:27 glucose, QN, fingerstick , blood (glucometer ) 2023 024 [facility] [address], [address], 4 10:10:27 cotinine, quantitativ e, unspecified specimen 2023 024 [facility] [address] [place] [address], [address], 4 10:10:27 Referral nutritionis t referral 2022 023 [place] Not available 11:24:47 Procedures None recorded. Surgeries None recorded. Imaging None recorded. Medication Orders None recorded. Patient TargetsNo targets recorded. Patient Instructions Encounter Date Encounter Id Patient Instructions Last Modified By Organization Details Last Modified Time 06/09/2024 [id number] Encouraged a healthy well balanced diet low in trans/saturated fats and high in fresh fruits, vegetables, whole grains, lean proteins and omega 3 fish oils. Continue participating in regular cardiovascular exercise for 30-45 minutes 3-4 times per week. F/u with search coordinator as scheduled. Pt verbalized understanding. [email or web address] Not available 06/09/2024 10:29:36 Reason for Referral Winding Operator Referral for Melvin dy mass index 25-29 - overweight Referring Physician: Rocael Murray, Family Medicine, Encounter Date: 10/16/2023 Results Created Date Observation Date Name Description Value Unit Range Abnormal Flag Note LastModifiedBy Organization Detail LastModifiedTime 06/09/20 24 06/09/2024 cotin ine, quant itati ve, unspe cifie d speci men Urine Pass Not Available [facility], [address], 05/15/2024 10:32:03 06/09/20 24 06/09/2024 gluco se, QN, finge rstic k, blood (gluc omete r) blood glucose (fasting) 121 md/dL 65-99 Not Available [address], [address], 05/15/2024 10:32:02 06/09/20 24 06/09/2024 gluco se, QN, finge rstic k, blood (gluc omete r) blood glucose (non-fasting ) mg/dL <140 Not Available [address], [address], 05/15/2024 10:32:02 06/09/20 24 06/09/2024 lipid panel , blood total cholesterol 132 mg/dL <200 Not Available [facility] [address], [address], 05/15/2024 10:32:02 06/09/20 24 06/09/2024 lipid panel , blood LDL 71 mg/dL <100 Not Available [address], [address], 05/15/2024 10:32:02 06/09/20 24 06/09/2024 lipid panel , blood HDL 45 mg/dL >50 Not Available [address], [address], 05/15/2024 10:32:02 06/09/20 24 06/09/2024 lipid panel , blood triglyceride s 80 mg/dL <150 Not Available [facility] [address], [address], 05/15/2024 10:32:02 06/09/20 24 06/09/2024 lipid panel , blood TC/HDL ratio 2.9 <4.5 Not Available [facility] [address], [address], 05/15/2024 10:32:02 06/09/20 24 06/09/2024 HbA1c (hemo globi n A1c), blood HbA1c 5.0 Not Available [address], [address], 05/15/2024 10:32:02 09/27/20 23 09/26/2023 imagi ng inter preta tion No observ ation record ed. [facility] Patient Respiratory Provider [address], [address], [place], [address], 09/28/2023 14:08:17 Result Notes None recorded. Problems Name Problem SNOMED Code Status Onset Date Resolution Date Notes Provider Name and Address Organization Details Recorded Time Gastroes ophageal reflux disease 493065715 Active 2022 ROCAEL MURRAY NP [address], [place], [address] , [place] [facility] 3 08:11:55 Anxiety 28881234 Active 2022 ROCAEL MURRAY NP [address], [place], [address] , [place] [facility] 3 08:12:06 History of depressi on 863035639 Active 2022 ROCAEL MURRAY NP [address], [place], [address] , [place] [facility] 3 08:12:18 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 201524226 Active 2022 ROCAEL MURRAY NP [address], [place], [address] , [place] [facility] 3 08:13:11 Sleep apnea 80216580 Active 2022 ROCAEL MURRAY NP [address], [place], [address] , [place] [facility] 3 08:13:28 Pain of left shoulder joint 89104376645 669453 Active 2022 ROCAEL MURRAY NP [address], [place], [address] , [place] [facility] 3 08:13:54 Pain of left knee joint 04163106756 4107 Active 2022 ROCAEL MURRAY NP [address], [place], [address] , [place] [facility] 3 08:14:08 Obstruct jeremias sleep apnea of adult 69885067932 03 Active 2022 ROCAEL MURRAY NP [address], [place], [address] , [place] [facility] 3 08:24:21 Pain of left heel 27595293360 40999 Active 2022 ROCAEL MURRAY NP [address], [place], [address] , [place] - [facility] 3 10:58:58 Patient encounte r status 335455229 Active 2022 Patient encounte r status; PROBABIL ITY: 0 SENSIT IVITY: 0.0 Conf irmation : Confirme d Annota tedDispl ay: Annual visit for general adult medical examinat ion with abnormal findings Classif ication: Medical Lifecycl eDateTim e: 13:45:00 +00:00 P atient encounte r status; PROBABIL ITY: 0 SENSIT IVITY: 0.0 Conf irmation : Confirme d Annota tedDispl ay: Screenin g for colon cancer C lassific ation: Medical Lifecycl eDateTim e: 13:31:00 +00:00 P atient encounte r status; PROBABIL ITY: 0 SENSIT IVITY: 0.0 Conf irmation : Confirme d Annota tedDispl ay: Encounte r for Zostavax administ ration C lassific ation: Medical Lifecycl eDateTim e: 18:41:00 +00:00; Start Date : 08/27/20 Not Available [facility] 4 04:25:40 Fatigue 88821719 Active 2022 Fatigue; PROBABIL ITY: 0 SENSIT IVITY: 0.0 Conf irmation : Confirme natalie Annota tedDispl ay: Fatigue Classifi cation: Medical Lifecycl eDateTim e: 14:02:00 +00:00 Not Available [facility] 4 04:25:40 Error entry deleted [id number] Completed 201501/08/2024 None; PROBABIL ITY: 0 Confir mation: Confirme d Annota tedDispl ay: None Cla ssificat ion: Medical Not Available [facility] 4 04:25:40 Pain of shoulder region 41528977 Active 2022 Shoulder pain; PROBABIL ITY: 0 SENSIT IVITY: 0.0 Conf irmation : Confirme d Annota tedDispl ay: Left shoulder pain Cla ssificat ion: Medical Lifecycl eDateTim e: 13:31:00 +00:00 Not Available [facility] 4 04:25:40 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 834042177 Completed 202201/08/2024 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; PROBABIL ITY: 0 SENSIT IVITY: 0.0 Conf irmation : Confirme d Annota tedDispl ay: Frequent PVCs Cla ssificat ion: Medical Lifecycl eDateTim e: 17:28:00 +00:00 M ultiple prematur e ventricu lar complexe s; PROBABIL ITY: 0 SENSIT IVITY: 0.0 Conf irmation : Confirme d cancel Reason: Annotat edDispla y: PVC's (prematu re ventricu lar contract ions) Cl assifica tion: Medical Lifecycl eDateTim e: 17:28:13 +00:00 Not Available [facility] 4 04:25:40 COVID-19 961319857 Active 2022 COVID-19 ; PROBABIL ITY: 0 SENSIT IVITY: 0.0 Conf irmation : Confirme d Annota tedDispl ay: COVID Cl assifica tion: Medical Lifecycl eDateTim e: 16:43:00 +00:00 Not Available [facility] 4 04:25:41 Depressi ve disorder 53340405 Active 2019 Depressi ve disorder ; PROBABIL ITY: 0 SENSIT IVITY: 0.0 Conf irmation : Confirme d Annota tedDispl ay: Depressi on Class ificatio n: Medical Lifecycl eDateTim e: 18:42:00 +00:00 D epressio n; PROBABIL ITY: 0 Confir mation: Confirme d Annota tedDispl ay: Depressi on Class ificatio n: Medical; Start Date : 03/07/20 19 Not Available [facility] 4 04:25:41 Acid reflux 070194489 Active 2017 Acid reflux; PROBABIL ITY: 0 Confir mation: Confirme d Annota tedDispl ay: Acid reflux C lassific ation: Medical Not Available [facility] 4 04:25:41 Pain of knee region 1941336416 Active 2022 Pain of knee region; PROBABIL ITY: 0 SENSIT IVITY: 0.0 Conf irmation : Confirme d Annota tedDispl ay: Left knee pain Cla ssificat ion: Medical Lifecycl eDateTim e: 13:31:00 +00:00 Not Available [facility] 4 04:25:41 Impacted cerumen in right ear 54502619041 83340 Active 2023 ROCAEL MURRAY NP [address], [place], [address] , [place] [facility] 4 10:27:58 Problem Notes None recorded. Procedures Surgical History Date Name Laterality Status Provider Name and Address Organization Details Recorded Time colonoscopy completed [employer] [place] [facility] 10/04/2023 10:51:58 Hysterectomy completed [employer] [place] [facility] 10/04/2023 10:52:06 oophorectomy completed [employer] [place] [facility] 10/04/2023 10:52:13 repair of meniscus completed [employer] [place] [facility] 10/04/2023 10:52:31 Imaging Results Imaging Date Name Status LastModified by Organization Details LastModified Time 09/26/2023 imaging interpretation completed [place] Patient Respiratory Provider [address], [address], [place], [address], 09/28/2023 14:08:17 Procedure Notes None recorded. Medical Equipment None Reported. Allergies Allergen ID Allergen Name Allergen Category Reaction Reaction Severity Criticality Documentation Date Start Date Code Code System Note Provider Name and Address Organization Details Recorded Time 404841 erythromy demetrio medicatio n Not available Not available Not available 10/04/2023 4053 RxNorm [employer] [facility], [place] [facility] 3 10:50:11 851524 Product containin g penicilli n (product) medicatio n Not available Not available Not available 10/04/2023 28291 8001 SNOMED [employer] null, [place] [facility] 3 10:50:17 110714 shellfish derived food,medi cation Not available Not available Not available 10/04/2023 62976 UNK [employer] Consult[employer] null, [place] [facility] 3 10:50:23 429656 Shellfish (substanc e) food,medi cation Not available Not available Not available 01/08/2024 50452 9006 SNOMED Comme nt: React ion Class : Aller gy; Not Available [facility] 4 02:54:21 770045 erythromy demetrio medicatio n Not available Not available Not available 01/08/2024 4053 RxNorm Comme nt: React ion Class : Aller gy; Not Available [facility] 4 02:54:21 Medications Name Sig Start Date Stop Date Status Note LastModified by Organization Details LastModified Time Zyrtec 10 mg tablet 08/27 completed Disconti nueDate: 0 10:07:00 AM Disco ntinueTy pe: User Manual DC StopT ype: Physicia n Stop Andre gIdentif icationN umber: [id number] T otalRefi lls: 0 Consta ntIndica tor: Yes CSAS chedule: 0.0 acti ve_statu s_dt_tm: 10/10/20 19 1:44:28 PM Not Available Not Available Not Available Macrobid 100 mg capsule 07/19 completed Duration : 7 Durati onUnit: day(s) S topType: Physicia n Stop Andre gIdentif icationN umber: [id number] S cheduled PRN: No Total Refills: 0 Consta ntIndica tor: Yes CSAS chedule: 0.0 acti ve_statu s_dt_tm: 8 11:19:39 AM Not Available Not Available Not Available flecainid e 50 mg tablet 07/19 completed Disconti nueDate: 3 10:42:00 AM Disco ntinueTy pe: User Manual DC StopT ype: Physicia n Stop Andre gIdentif icationN umber: [id number] T otalRefi lls: 0 Consta ntIndica tor: Yes CSAS chedule: 0.0 acti ve_statu s_dt_tm: 3 12:17:43 PM Not Available Not Available Not Available Levaquin 500 mg tablet 10/17 completed Duration : 7 Durati onUnit: day(s) S topType: Physicia n Stop Andre gIdentif icationN umber: [id number] S cheduled PRN: No Total Refills: 0 Consta ntIndica tor: Yes acti ve_statu s_dt_tm: 10/10/20 19 1:21:51 PM Not Available Not Available Not Available Compressi on Stockings 2022 active StopType : Soft Stop Con stantInd icator: Yes acti ve_statu s_dt_tm: 3 9:23:14 AM Not Available Not Available Not Available Boostrix Tdap 2.5 Lf unit-8 mcg-5 Lf/0.5 mL intramusc ular syringe 04/30 completed StopType : Physicia n Stop Andre gIdentif icationN umber: [id number] N extDoseD ate: 04/30/2020 9:10:00 AM Const antIndic ator: No CSASc hedule: 0.0 acti ve_statu s_dt_tm: 04/30/2020 9:11:01 AM Not Available Not Available Not Available evening primrose oil 04/30 completed Disconti nueDate: 04/30/2020 8:15:00 AM StopT ype: Physicia n Stop Andre gIdentif icationN umber: [id number] T otalRefi lls: 0 Consta ntIndica tor: Yes CSAS chedule: 0.0 acti ve_statu s_dt_tm: 9 1:40:05 PM Not Available Not Available Not Available vitamin E 04/30 completed Disconti nueDate: 04/30/2020 8:15:00 AM StopT ype: Physicia n Stop Andre gIdentif icationN umber: [id number] T otalRefi lls: 0 Consta ntIndica tor: Yes CSAS chedule: 0.0 acti ve_statu s_dt_tm: 9 1:39:39 PM Not Available Not Available Not Available Ranitidin e 04/30 completed Disconti nueDate: 04/30/2020 8:15:00 AM StopT ype: Physicia n Stop Andre gIdentif icationN umber: [id number] T otalRefi lls: 0 Consta ntIndica tor: Yes CSAS chedule: 0.0 acti ve_statu s_dt_tm: 9 1:40:33 PM Not Available Not Available Not Available Imvexxy Maintenan ce Pack 10 mcg vaginal insert INSERT 1 TABLET PER VAGINA 2 TIMES A WEEK active Not Available Not Available No t Available Flulaval Quad 5108-6295 60 mcg (15 mcg x 4)/0.5 mL intramusc ular susp. 01/02 completed StopType : Physicia n Stop Andre gIdentif icationN umber: [id number] N extDoseD ate: 01/02/2020 12:08:00 PM Const antIndic ator: No activ e_status _dt_tm: 01/02/2020 12:08:54 PM Not Available Not Available Not Available Paxlovid 300 mg (150 mg x 2)-100 mg tablets in a dose pack FOLLOW PACKAGE DIRECTIO NS. DO NOT TAKE FLECAINI DE WHILE TAKING THIS. YOU MAY RESUME 3 DAYS AFTER YOU FINISH LAST DOSE 03/17 completed Not Available Not Available Not Available Vitals Date Recorded Body weight Body mass index (BMI) Body height Respiratory rate Heart rate Oxygen saturation Oxygen saturation in Arterial blood by Pulse oximetry Body temperature Systolic blood pressure Diastolic blood pressure Provider Name and Address Organization Details Last Updated DateTime 3 87030.5 5 g 28.1 kg/m2 175.26 cm 18 /min 60 /min 97 % 97 % 98.2 [degF] 93 mm[Hg] 60 mm[Hg] Breanna Victoriano [place] - [facility] 3 09:37:41 Date Recorded Body height Body temperature Oxygen saturation Oxygen saturation in Arterial blood by Pulse oximetry Body mass index (BMI) Body weight Heart rate Systolic blood pressure Diastolic blood pressure Provider Name and Address Organization Details Last Updated DateTime 4 175.26 cm 98.4 [degF] 98 % 98 % 26.6 kg/m2 77309.3 5 g 56 /min 126 mm[Hg] 65 mm[Hg] Ayse Molina [place] - [facility] 4 09:35:10 Date Recorded Body height Body mass index (BMI) Body weight Heart rate Body temperature Oxygen saturation Oxygen saturation in Arterial blood by Pulse oximetry Systolic blood pressure Diastolic blood pressure Provider Name and Address Organization Details Last Updated DateTime 4 175.26 cm 24.6 kg/m2 07726.7 7 g 73 /min 98.1 [degF] 97 % 97 % 97 mm[Hg] 61 mm[Hg] Liz Taylor [place] - [facility] 4 09:24:33 Social History Question Answer Notes LastModified by Organizat ion Details LastModified Time Tobacco Smoking Status Never Smoker Jody caldwell [place] - [facility] 10/04/2023 10:53:25 What Is Your Level Of Alcohol Consumption? Occasional Information not available 06/09/2024 What Is Your Level Of Caffeine Consumption? Moderate Information not available 06/09/2024 In The 14 Days Before Symptom Onset, Have You Had Close Contact With A Laboratory-confirm ed COVID-19 While That Case Was Ill? No Information n ot available 10/16/2023 In The 14 Days Before Symptom Onset, Have You Had Close Contact With A Person Who Is Under Investigation For COVID-19 While That Person Was Ill? No Information not available 10/16/2023 Have You Been To An Area Known To Be High Risk For COVID-19? No Information not available 10/16/2023 What Is The Highest Grade Or Level Of School You Have Completed Or The Highest Degree You Have Received? [id number] [email or web address] Information not available 03/17/2024 Sleep Habits 7 Hours Information not available 06/09/2024 Have You Ever Served In The ? No Information not available 03/17/2024 Do You Or Have You Ever Used Any Other Forms Of Tobacco Or Nicotine? No abander Information not available 10/04/2023 Sex: Unknown Functional Status None recorded. Mental Status None recorded. Family History Relationship Description Onset Age of this Age Resolved Age Notes LastModified by Organization Details LastModified Time Father Hypercholest erolemia abander Not available 2022 10:52:49 Mother Hypertensive disorder abander Not available 2022 10:53:03 Notes:Father: Hypercholester emia..... Mother: High blood pressure Medical History Condition Response Coronary Artery Disease N Gout N Macular Degeneration N Atrial Fibrillation N Heart Valve Disorder N Kidney Stones N Hyperthyroidism N MRSA N COPD N Depression N Migraine Headaches N Retinopathy Diabetic N Hodgkin's Lymphoma N Positive TB Skin Test N Obstructive Sleep Apnea N Sinus Infections N Infertility N Carpal Tunnel N Lupus (SLE) N DVT (Blood Clot in legs) N Rheumatoid Arthritis N Fibromyalgia N Incontinence, stress N Anxiety N Venous Insufficiency (Swelling of Legs & Ankles) N Anemia, other N Vit D Deficiency N Peptic Ulcer Disease N Menstrual Cycle- Heavy N Irritable bowel N Blood in urine N GERD (reflux) N Compression fracture of spine (vertebral ) N Carotid Artery Disease N Tuberculosis N AIDS/HIV N Hip fracture N Anemia, iron deficient N Asthma N Blood clotting disorder N Diabetes Type II N Peripheral Vascular Disease N Myocardial Infarction with Stent (Heart Attack) N Abnormal Pap N Diabetes Type I N Hepatitis N Cirrhosis N Seizure Disorder N Stroke (CVA) N Colon Cancer N Leukemia N Breast Cancer N Erectile Dysfunction (ED) N Myocardial Infarction w/o Stent (Heart A ttack) N Raynauds Disease N Lung Cancer N Glaucoma N Hypothyroidism N [facility] N Bipolar N Hypertension (High Blood Pressure) N Irregular Menses N Other Rhythm Problem N Bone loss (Osteopenia or osteoporosis) N Varicose Veins N Hearing Loss N Cervical Cancer N Hypoglycemia N Hyperlipidemia (High Cholesterol) N Chronic Kidney Disease N Vit B12 Deficiency N Incontinence, urge N Menstrual Cycle- Painful N Panic Disorder N Schizophrenia N Osteoarthritis N BPH (enlarged prostate) N UTI Chronic N Lyme Disease N Prostate Cancer N Abdominal Aortic Aneurysm N Shingles (HZ) N Non-Hodgkin's Lymphoma N Ovarian Cancer N Lumbar Spine Disease N Abnormal Mammogram N Cervical Spine Disease N Congestive Heart Failure (CHF) N Eczema N Rectal Bleeding N Dementia N Diverticulitis N Bladder Cancer N Psoriasis N Gall Stones N Thrombocytopenia (low platelets) N Allergic Rhinitis (seasonal allergies) N Gynecological HistoryNo gynecological history recorded. Obstetrics History GPAL:G 0 P 0 0 0 0 Immunizations Vaccine Type Date Status Note Provider Nam e and Address Organization Details Recorded Time zoster recombinant 08/27/2020 completed ROCAEL MURRAY NP [address], [place], [address], [place] [facility] 10/16/2023 08:29:51 zoster recombinant 11/01/2020 completed ROCAEL MURRAY NP [address], [place], [address], [place] [facility] 10/16/2023 08:30:01 Tdap 04/30/2020 completed ROCAEL MURRAY NP [address], [place], [address], [place] [facility] 10/16/2023 08:30:37 SARS-COV-2 (COVID-19) vaccine, UNSPECIFIED 09/12/2023 completed Breanna Victoriano null, [place] - [facility] 10/16/2023 09:39:37 influenza, unspecified formulation 09/12/2023 completed Breanna Victoriano null, [place] [facility] 10/16/2023 09:39:53 Past Encounters Encounter ID Performer Location Encounter Start Date Encounter Closed Date Diagnosis/Indication Diagnosis SNOMED-CT Code Diagnosis ICD10 Code Diagnosis Note [id number] ROCAEL MURRAY NP [facility] - [address] [place] [address] 10/16/2023 09:31:52 10/16/2023 11:24:47 Obstructive sleep apnea of adult 6448334476 103 G47.33 Continue CPAP as ordered. F/u in 3-6 months. Pt verbalized understand ing. Body mass index 25-29 - overweight 526242187 Z68.28 Referral made to [facility]. Business card given to pt and encouraged to follow up. Follow a healthy well balanced diet and exercise as tolerated until cleared by theater projectionist . Pt verbalized understand ing. Multiple p remature ventricular complexes 840774983 I49.3 F/u with cardiology as scheduled. Pt verbalized understand ing. Pain of left heel 645378 1053 141336 M79.672 Continue stretching and use of frozen ice bottles PRN. F/u with theater projectionist as scheduled. Pt verbalized understand ing. [id number] Andrew Lacy, DO [facility] [employer] [facility] [employer] [employer] [facility] [address] [address] 03/17/2024 09:23:16 03/17/2024 13:40:41 Obstructive sleep apnea of adult 0078995813 103 G47.33 Continue CPAP as ordered. F/u in 6 months. Pt verbalized understand ing. Multiple p remature ventricular complexes 004950859 I49.3 F/u with cardiology as scheduled. Pt verbalized understand ing. Gastroesop hageal reflux disease 561485463 K21.9 Continue to avoid food triggers and alcohol as well as caffeine and chocolate. Will continue to monitor. [id number] Andrew Lacy, DO [facility] [employer] [facility] [address] [address] 06/09/2024 09:10:06 06/09/2024 10:37:38 Adult health examination 255982437 Z00.00 Urine cotinine is negative. A1c and lipids WNL. Lipids improved since Vitality last fall. Impacted c erumen in right ear 1186137056 192477 H61.21 Pt refused ear lavage today. States she will have her flush her ears at home. May use OTC Debrox 5-10 drops in right ear PRN. May use 2 drops of Hydrogen Peroxide in ear canals weekly/PRN for maintenanc e. Avoid use of Q-tips and ear buds. F/u if symptoms persist or worsen. Pt in agreement and verbalized understand ing. Health Concerns Section Related Observation LastModified by Organization Detai ls LastModified Time None Recorded Concern Status LastModified by Organization Details LastModified Time None Recorded Advance Directives Directive None Recorded Payers Insurance Date Sequence Insurance Name Policy Number Policy Ryan Covered Member ID Ryan Member ID Guarantor Name 06/06/2024 1 [employer] - [employer] - ALL PLANS (PPO) [id number] Sesar Durbin [id number] Nelli Durbin Notes Date Note Type Note Provider Name and Address Organization Details Recorded Time 10/16/2023 text/html Pt presents to [facility] for sleep apnea follow up. Using her nasal PAP nightly. Uses the kamar to follow her progress/sleep pattern. Is feeling more rested and less fatigued since she started using PAP two months ago. Has more energy and less daytime sleepiness. Followed up with shot core drill operator, Dr. Naylor two weeks ago for her frequent PVC's. Does not want to take any medication for management as it has not helped in the past. Reports her palpitations are less extreme since wearing PAP. Discussing ablation if symptoms continue. Wearing holter monitor next week to see if her PVC frequently has decreased with use of PAP. Seeing theater projectionist, Dr. Rohan Orourke, later today for left heel pain for the last 2 months. Initially, thought it was plantar fasciitis but is not getting better with orthotics, OTC pain medication or rolling her foot on frozen water bottles. No pain while sitting in chair today. On feet a lot during the day. Pain all day long. Struggling with her weight. Used to belong to [employer] but quit because they were always updating/changing the program. Wants to lose weight and wondering if there were any other options. Exercise limited at this time due to her left heel pain. Interested in search coordinator referral. ROCAEL MURRAY NP [address], [place], [address], [place] [facility] 10/16/2023 11:14:13 03/17/2024 text/html Pt presents to [facility] in f/u of sleep apnea. Reports she is feeling more rested since she started wearing CPAP. Fatigue has improved and she has more energy. Followed up with shot core drill operator for holter monitor. Notices PVC's less often since starting CPAP. Uses nasal pillow and has the [employer] which dumps data to [employer]. Has lost 10 pounds in last 5 months. Meeting on monthly basis with search coordinator, Stephani Akhtar. Has been trying to be more active. Playing pickleball. Has a [employer] membership. States she is a stress eater. Joined [employer] recently. Reports GERD symptoms have resolved with diet changes and portion controls. Avoiding alcohol. ROCAEL MURRAY NP [address], [place], [address], [place] [facility] 03/17/2024 11:22:08 06/09/2024 text/html Pt presents to [facility] for Vitality screening. Primary care is managed by [facility]. Eating a more well balanced diet and watching her intake using the [employer]'s food tracker. Eating a lot of fresh fruits, vegetables and lean proteins. Has lost 16 pounds in the last 3 months. Meets with search coordinator, Stephani Akhtar, on a monthly basis. Playing [employer] ball for exercise. Has a membership to [employer]. Wanting to get back into exercise classes. UTD on well woman. Negative mammogram on 04/04/24. Negative colonoscopy on 06/06/23. UTD on dental exam. Needs to schedule her eye exam. Does not smoke and rarely drinks alcohol. Shingles vaccines in 2020. Drinks 3-4 cups of coffee daily. ROCAEL MURRAY NP [address], [place], [address], [place] [facility] 06/09/2024 10:32:14 OBGyn Episode No OBEpisode recorded.
[2025-04-03 20:24] LABS: Hemoglobin 12.2 g/dL (12.0-15.0); Mean Corpuscular HGB Conc 31.3 g/dl (32-36); Mean Corpuscular Hemoglobin 30.5 pg (26-34); Mean Corpuscular Volume 97.5 fl (80-100); Mean Platelet Volume 10.1 fl (7.4-10.4); Platelet Count Result 176 k/mm3 (150-375); Red Cell Distribution Width 12.7 % (11.5-14.5); White Blood Count 3.9 K/mm3 (4.5-10.0)
[2025-04-03 20:36] LABS: Alanine Aminotransferase 17 U/L (6-35); Alkaline Phosphatase 53 U/L (38-126); Anion Gap 4 mmol/L (4-12); Aspartate Amino Transferase 30 U/L (14-36); Bilirubin,Total 0.5 mg/dL (0.2-1.3); Blood Urea Nitrogen 15 mg/dL (7-17); Calcium 8.6 mg/dL (8.4-10.2); Carbon Dioxide 32 mmol/L (22-30); Chloride 106 mmol/L (98-107); Cholesterol 186 mg/dL (0-200); Estimated Glomerular Filt Rate > 60; Glucose 88 mg/dL (65-110); HDL Direct 53 mg/dL; Potassium 4.4 mmol/L (3.4-5.0); Sodium 142 mmol/L (137-145); Triglycerides 74 mg/dL (<150)
[2025-04-03 20:55] LABS: LDL Cholesterol Direct 81 mg/dL
== END 2025-04-03 08:50 | disposition home or self-care (01) ==
LOC: ANHGOSHLAB 08:49
PROVIDERS: PCP Family Medicine; Visit Provider Nurse Practitioner
DX: Z76.89 Persons encountering health services in other specified circumstances (principal); E55.9 Vitamin D deficiency, unspecified
CPT/HCPCS: 36415; 80053; 80061; 82306; 84443; 85027

== ENCOUNTER 2025-04-15 14:58 | Outpatient (CLI) | payer BC, SELFPAY ==
--- NOTE | ~2025-04-15 | MM_ITS ---
EXAMINATION: MM screening cristy BI w solo HISTORY: Screening TECHNIQUE: Craniocaudal and mediolateral oblique 3-D tomosynthesis images were obtained and synthetic 2-D images were generated. CAD analysis was submitted and interpreted. COMPARISON: Comparison to multiple prior studies sequentially, with oldest reviewed study dated 07/09. BREAST PARENCHYMAL COMPOSITION: Dense: The breasts are heterogeneously dense, which may obscure small masses FINDINGS: There is no evidence of suspicious mass, calcification, or architectural distortion to sugg est malignancy in either breast. There has been no suspicious interval change. IMPRESSION: 1. No mammographic evidence of malignancy. 2. Recommend routine screening mammography in one year. BI-RADS Category 1: Negative Reviewed, dictated and finalized at location B.
== END 2025-04-15 14:59 | disposition home or self-care (01) ==
LOC: MICIMG 15:00
PROVIDERS: PCP Obstetrics & Gynecology Gynecology; Visit Provider Obstetrics & Gynecology Gynecology
DX: Z12.31 Encounter for screening mammogram for malignant neoplasm of breast (principal)
CPT/HCPCS: 77063; 77067

== ENCOUNTER 2025-05-15 10:42 | Outpatient (CLI) | payer BC, SELFPAY ==
[2025-05-15 18:26] LABS: Hematocrit 37.8 % (37.0-47.0); Hemoglobin 12.3 g/dL (12.0-15.0); Mean Corpuscular HGB Conc 32.5 g/dl (32-36); Mean Corpuscular Hemoglobin 31.2 pg (26-34); Mean Corpuscular Volume 95.9 fl (80-100); Mean Platelet Volume 9.8 fl (7.4-10.4); Platelet Count Result 191 k/mm3 (150-375); Red Blood Count 3.94 M/mm3 (4.2-5.4); Red Cell Distribution Width 12.4 % (11.5-14.5); White Blood Count 4.2 K/mm3 (4.5-10.0)
== END 2025-05-15 10:43 | disposition home or self-care (01) ==
LOC: ANHGOSHLAB 10:43
PROVIDERS: PCP Obstetrics & Gynecology Gynecology; Visit Provider Nurse Practitioner
DX: D72.9 Disorder of white blood cells, unspecified (principal)
CPT/HCPCS: 36415; 85027

== ENCOUNTER 2025-09-28 15:15 | Outpatient (CLI) | payer BC, SELFPAY ==
--- NOTE | ~2025-09-28 | DEXA_ITS ---
Bone Density Report Name: KJ AHUJA Age: 59 Sex: Female Ethnicity: White Date of : 1965 Indication: postmenopausal; screening for osteoporosis; hysterectomy; Referring Provider: MICKEY, ANGELA Mera Study: Bone densitometry was performed. Exam Date: September 28, 2025 Accession number: [id number] Bone Density: Region BMD T-score Z-score Classification AP Spine(L1-L4) 1.030 -0.2 1.2 Normal Femoral Neck (Left) 0.737 -1.0 0.3 Normal Total Hip (Left) 0.875 -0.6 0.4 Normal Femoral Neck (Right) 0.721 -1.2 0.1 Osteopenia Total Hip (Right) 0.828 -0.9 0.0 Normal Total Hip Mean 0.851 -0.8 0.2 Normal World Health Organization criteria for BMD impression classify patients as: Normal (T-score at or above -1.0), Osteopenia (T-score between -1.0 and -2.5), or Osteoporosis (T-score at or below -2.5). 10-year Fracture Risk(1): Major Osteoporotic Fracture 7.2% Hip Fracture 0.4% Reported Risk Factors: [place] (), Neck BMD=0.721, BMI=24.4 (1) FRAX(R) Version 3.08. Fracture probability calculated for an untreated patient. Fracture probability may be lower if the patient has received treatment. Previous Exams: -- Region Exam Age BMD T-score BMD Change BMD Change Date g/cm2 vs Baseline vs Previous -- AP Spine (L1-L4) 09/28/2025 59 1.030 -0.2 -2.7%* 3.8%# 09/19/2021 55 0.992 -0.5 -6.3%# 2.9%# 09/08/2017 51 0.964 -0.8 -8.9%* -4.8%* 06/30/2013 47 1.013 -0.3 -4.3%* -0.3% 07/12/2009 43 1.016 -0.3 -4.1%* -4.1%* 07/08/2008 42 1.059 0.1 Total Hip(Left) 09/28/2025 59 0.875 -0.6 -14.3%* -6.7%# 09/19/2021 55 0.938 0.0 -8.1%# 1.9%# 09/08/2017 51 0.920 -0.2 -9.9%* -5.5%* 06/30/2013 47 0.973 0.3 -4.6%* -0.7% 07/12/2009 43 0.980 0.3 -4.0%* -4.0%* 07/08/2008 42 1.021 0.6 Total Hip(Right) 09/28/2025 59 0.828 -0.9 -14.4%* -5.7%# 09/19/2021 55 0.878 -0.5 -9.2%# 0.4%# 09/08/2017 51 0.875 -0.6 -9.5%* -7.6%* 06/30/2013 47 0.947 0.0 -2.1% 0.1% 07/12/2009 43 0.946 0.0 -2.1% -2.1% 07/08/2008 42 0.967 0.2 -- *Denotes significance at 95% confidence level, LSC for AP Spine = 0.022 g/cm2, LSC for Total Hip = 0.027 g/cm2 # Denotes dissimilar scan types or analysis methods Clinical Information Provided by Patient: Has used the following medications: HRT (i.e. estrogen/hormone therapy), Vitamin D, Calcium Has the following medical conditions: Hysterectomy Patient maximum height was 69 Menopause Age: 38 Drinks caffeinated beverages Onset of menses at age 14 Number of children 0 Impression: The patient has low bone mass, based on the Right Femoral Neck T-score. The patient has an estimated ten-year risk of hip fracture of 0.4% and an estimated ten-year risk of major fracture of 7.2%, based on the WHO FRAX algorithm. Unable to evaluate interval change due to the use of different scan modes. Discussion: BONE DENSITY IS LOW AT ONE OR MORE SKELETAL SITES. This patient's lowest T-score is low at one or more skeletal sites. It meets the World Health Organization's (WHO) criteria for ?low bone mass? (T-score between -1.0 and -2.5). The patient's 10-year risk of fracture as calculated by FRAX is less than the threshold where pharmacological therapy is recommended by the National Osteoporosis Foundation (NOF). However, all treatment decisions require clinical judgment and consideration of individual patient factors, including patient preferences, comorbidities, previous drug use, risk factors not captured in the FRAX model (e.g., frailty, falls, vitamin D deficiency, increased bone turnover, interval significant decline in bone density) and possible under or overestimation of fracture risk by FRAX. The patient should follow a healthful lifestyle (good nutrition with adequate calcium and vitamin D, and appropriate weight-bearing exercise). Follow-Up: Consider repeating this study in 2 to 3 years to reassess this patient's status, or sooner if there is some new clinical indication. Reported by: KATERYNA on 09/28/2025 3:38:00 PM. Reviewed, dictated and finalized at location A.
== END 2025-09-28 15:16 | disposition home or self-care (01) ==
LOC: MICIMG 15:15
DX: Z78.0 Asymptomatic menopausal state (principal); M85.851 Other specified disorders of bone density and structure, right thigh
CPT/HCPCS: 77080